=== PATIENT | male | born 1975 | race Caucasian/White ===

== ENCOUNTER 2016-08-11 17:59 | Observation (INO) | payer OTHER ==
[~2016-08-11] VITALS: Ht 188 cm; Wt 96.4 kg
[~2016-08-11 17:59] MED LIST: NAPR500 PO; PRIL10CA PO
[2016-08-11 18:10] VITALS: BP 120/82; PULSE 105; RESP 16; TEMP 100.1; O2SAT 98
[2016-08-11] MEDS ORDERED: SODIUM CHLOR 0.9% 1000 ML INJ 1,000 ML IV SCH (18:18)
[2016-08-11] MEDS ORDERED: PRIL20CA9 PO (18:22)
--- NOTE | 2016-08-11 18:22 | PD ---
HPI Chief Complaint: Abdominal Pain Time Seen by Provider: 18:14 Travel History International Travel<30 days: No Contact w/Intl Traveler<30days: No Traveled to known affect area: No History of Present Illness HPI 41-year-old male here for evaluation of abdominal pain. The patient reports that around 2:00 AM the patient was awaken by lower abdominal pain. Pain described as cramping which is worse with movement and palpation, currently 5 out of 10. The patient has felt nauseous but has not vomited. No diarrhea. He has had subjective fevers and chills. No urinary symptoms. No history of abdominal surgeries. PFSH Past Medical History Gastrointestinal Disorders: Yes (ACID REFLUX) Past Surgical History Oral Surgery: Yes Social History Alcohol Use: Yes (OCC) Tobacco Use: No Substance Use: No Allergies-Medications (Allergen,Severity, Reaction): Coded Allergies: Sulfa (Verified Allergy, Unknown, 08/11/16) Penicillin (Verified Adverse Reaction, Unknown, 08/11/16) Reported Meds & Prescriptions Reported Meds & Active Scripts Active Reported Prilosec (Omeprazole) 20 Mg Cap 20 Mg PO DAILY Review of Systems Except as stated in HPI: all other systems reviewed are Neg Physical Exam Narrative GENERAL: Well-developed, well-nourished, comfortable, no acute distress. SKIN: Focused skin assessment warm/dry. No rash. HEAD: Atraumatic. Normocephalic. EYES: Pupils equal and round. No scleral icterus. No injection or drainage. ENT: Mucous membranes pink and moist. NECK: Trachea midline. No JVD. CARDIOVASCULAR: Regular rate and rhythm. RESPIRATORY: No accessory muscle use. Clear to auscultation. Breath sounds equal bilaterally. GASTROINTESTINAL: Abdomen soft, nondistended. Moderate periumbilical and right lower quadrant tenderness. Mild left lower quadrant tenderness. No peritoneal signs. Rest of abdomen is soft and nontender. No hernias. Normal bowel sounds. MUSCULOSKELETAL: No obvious deformities. No clubbing. No cyanosis. No edema. NEUROLOGICAL: Awake and alert. No obvious cranial nerve deficits. Motor grossly within normal limits. Normal speech. PSYCHIATRIC: Appropriate mood and affect; insight and judgment normal. Data Data Last Documented VS Vital Signs Date Time Temp Pulse Resp B/P Pulse Ox O2 Delivery O2 Flow Rate FiO2 08/11/16 20:20 89 17 116/68 100 Room Air 08/11/16 18:10 100.1 Orders Complete Blood Count With Diff (08/11/16 18:18) Comprehensive Metabolic Panel (08/11/16 18:18) Lipase (08/11/16 18:18) Prothrombin Time / Inr (Pt) (08/11/16 18:18) Act Partial Throm Time (Ptt) (08/11/16 18:18) Urinalysis - C+S If Indicated (08/11/16 18:18) Ct Abd/Pel W Iv Contrast(Rout) (08/11/16 18:18) Iv Access Insert/Monitor (08/11/16 18:18) Ecg Monitoring (08/11/16 18:18) Oximetry (08/11/16 18:18) Sodium Chlor 0.9% 1000 Ml Inj (Ns 1000 M (08/11/16 18:18) Sodium Chloride 0.9% Flush (Ns Flush) (08/11/16 18:30) Sodium Chlor 0.9% 1000 Ml Inj (Ns 1000 M (08/11/16 18:30) Oral Contrast - Adult (08/11/16 18:27) Diatrizoate Liq ( Gastroview Liq) (08/11/16 18:39) Iohexol 350 Inj (Omnipaque 350 Inj) (08/11/16 20:11) Labs Laboratory Tests Test 08/11/16 08/11/16 18:15 18:18 White Blood Count 13.2 TH/MM3 Red Blood Count 4.89 MIL/MM3 Hemoglobin 15.4 GM/DL Hematocrit 45.6 % Mean Corpuscular Volume 93.3 FL Mean Corpuscular Hemoglobin 31.5 PG Mean Corpuscular Hemoglobin 33.8 % Concent Red Cell Distribution Width 13.8 % Platelet Count 247 TH/MM3 Mean Platelet Volume 9.2 FL Neutrophils (%) (Auto) 69.9 % Lymphocytes (%) (Auto) 19.2 % Monocytes (%) (Auto) 9.9 % Eosinophils (%) (Auto) 0.7 % Basophils (%) (Auto) 0.3 % Neutrophils # (Auto) 9.3 TH/MM3 Lymphocytes # (Auto) 2.5 TH/MM3 Monocytes # (Auto) 1.3 TH/MM3 Eosinophils # (Auto) 0.1 TH/MM3 Basophils # (Auto) 0.0 TH/MM3 CBC Comment DIFF FINAL Differential Comment Prothrombin Time 10.7 SEC Prothromb Time International 1.0 RATIO Ratio Activated Partial 27.8 SEC Thromboplast Time Sodium Level 138 MEQ/L Potassium Level 3.3 MEQ/L Chloride Level 103 MEQ/L Carbon Dioxide Level 26.4 MEQ/L Anion Gap 9 MEQ/L Blood Urea Nitrogen 8 MG/DL Creatinine 0.86 MG/DL Estimat Glomerular Filtration 98 ML/MIN Rate Random Glucose 92 MG/DL Calcium Level 8.9 MG/DL Total Bilirubin 0.9 MG/DL Aspartate Amino Transf 11 U/L (AST/SGOT) Alanine Aminotransferase 28 U/L (ALT/SGPT) Alkaline Phosphatase 61 U/L Total Protein 7.3 GM/DL Albumin 3.7 GM/DL Lipase 120 U/L Urine Color YELLOW Urine Turbidity CLEAR Urine pH 6.5 Urine Specific [place] 1.016 Urine Protein NEG mg/dL Urine Glucose (UA) NEG mg/dL Urine Ketones NEG mg/dL Urine Occult Blood SMALL Urine Nitrite NEG Urine Bilirubin NEG Urine Leukocyte Esterase NEG Urine RBC 0-3 /hpf Urine Squamous Epithelial 0-5 /hpf Cells Microscopic Urinalysis Comment CULT NOT INDICATED MDM Medical Decision Making Medical Screen Exam Complete: Yes Emergency Medical Condition: Yes Differential Diagnosis Appendicitis, colitis, diverticulitis, cystitis, UTI Narrative Course Initial vital signs show heart rate 105, blood pressure 120/82, pulse ox 98% on room air, oral temp of 100.1F. CBC shows WBC 13.2, hemoglobin 15.4, hematocrit 45.6, platelets 247. CMP is remarkable for potassium 3.3, otherwise unremarkable. Lipase is 120. UA shows small occult blood, not suggestive of UTI. CT abdomen pelvis: CONCLUSION: Mild prominent tubular structure which appears to arise from the cecum and measures up to 1 cm in diameter consistent with an appendix. There is questionable mild wall enhancement and questionable minimal inflammatory change. This is of concerning for possible early appendicitis. 8:35 PM: Case discussed with on-call general surgeon Dr. Lowery who is here in the emergency department and will evaluate the patient. Patient will be started on Cipro and Flagyl and will be admitted to Dr. Lowery for appendectomy in the morning. Diagnosis Primary Impression: Acute appendicitis Qualified Code: K35.80 - Acute appendicitis, unspecified acute appendicitis type Admitting Information Admitting Physician Requests: Observation Curry Monroy MD August 11, 2016 18:22
[2016-08-11] MEDS ORDERED: SODIUM CHLORIDE 0.9% FLUSH 10 ML FLUSH IV FLUSH PRN ×2 (18:30→21:15)
[2016-08-11] MEDS ORDERED: SODIUM CHLOR 0.9% 1000 ML INJ 1,000 ML IV ONE (18:30)
[2016-08-11 18:35] VITALS: O2SAT 97
[2016-08-11] MEDS ORDERED: DIATRIZOATE MEGLUM/DIATRIZOATE SOD 9 ML CUP ONE (18:39)
[2016-08-11 18:48] LABS: AUTOMATED NEUTROPHIL # 9.3 TH/MM3 (1.8-7.7); BASOPHIL % 0.3 % (0.0-2.0); EOSINOPHIL # 0.1 TH/MM3 (0-0.4); EOSINOPHIL % 0.7 % (0.0-4.0); HEMATOCRIT 45.6 % (39.0-51.0); HEMO FLAGS DIFF FINAL; LYMPH % 19.2 % (9.0-44.0); LYMPHOCYTE # 2.5 TH/MM3 (1.0-4.8); MEAN CELL VOLUME 93.3 FL (80.0-100.0); MEAN CORPUSCULAR HEMOGLOBIN 31.5 PG (27.0-34.0); MEAN CORPUSCULAR HGB CONC 33.8 % (32.0-36.0); MONO % 9.9 % (0.0-8.0); NEUT % 69.9 % (16.0-70.0); PLATELET COUNT 247 TH/MM3 (150-450); RED BLOOD COUNT 4.89 MIL/MM3 (4.50-5.90); RED CELL DISTRIBUTION WIDTH 13.8 % (11.6-17.2); WHITE BLOOD COUNT 13.2 TH/MM3 (4.0-11.0)
[2016-08-11 18:54] LABS: CHLORIDE 103 MEQ/L (98-107); POTASSIUM 3.3 MEQ/L (3.5-5.1); SODIUM (NA) 138 MEQ/L (136-145)
[2016-08-11 18:55] LABS: BLOOD, URINE SMALL (NEG); GLUCOSE,URINE NEG (NEG); KETONE, URINE NEG (NEG); NITRITE,URINE NEG (NEG); PH, URINE 6.5 (5.0-8.5)
[2016-08-11 18:58] LABS: APTT (PATIENT) 27.8 SEC (24.3-30.1); PROTHROMBIN TIME - PATIENT 10.7 SEC (9.8-11.6)
[2016-08-11 19:00] LABS: ANION GAP 9 MEQ/L (5-15); BICARBONATE 26.4 MEQ/L (21.0-32.0)
[2016-08-11 19:01] LABS: BLOOD UREA NITROGEN 8 MG/DL (7-18)
[2016-08-11 19:03] LABS: ALT (GPT) 28 U/L (12-78); AST (GOT) 11 U/L (15-37)
[2016-08-11 19:04] LABS: GLOMERULAR FILTRATION RATE 98 ML/MIN (>89)
[2016-08-11 19:05] VITALS: BP 150/68; PULSE 102; RESP 17; O2SAT 100
[2016-08-11 19:05] LABS: TOTAL BILIRUBIN ADULT 0.9 MG/DL (0.2-1.0)
[2016-08-11 19:06] LABS: ALKALINE PHOSPHATASE 61 U/L (45-117)
[2016-08-11 19:07] LABS: URINE COLOR YELLOW (YELLW/STRAW)
[2016-08-11 19:08] LABS: COMMENT (UR) CULT NOT INDICATED; CULTURE IF INDICATED CULT NOT INDICATED; RBC, URINE 0-3 /hpf (0-3); SQUAMOUS EPITHELIAL CELL URINE 0-5 /hpf (0-5)
[2016-08-11] MEDS ORDERED: IOHEXOL 350 MG/ML 10 ML VIAL (for RAD DIAG) IV ONE (20:11)
[2016-08-11 20:20] VITALS: BP 116/68; PULSE 89; RESP 17; O2SAT 100
--- NOTE | 2016-08-11 20:21 | RADHPO ---
EXAM DATE/TIME: 08/11/2016 19:54 [facility] COMPARISON: No previous studies available for comparison. INDICATIONS : Right lower quadrant pain. IV CONTRAST: 100 cc Omnipaque 350 (iohexol) IV ORAL CONTRAST: Prescribed oral contrast ingested. RADIATION DOSE: 14.98 CTDIvol (mGy) MEDICAL HISTORY : None SURGICAL HISTORY : None. ENCOUNTER: Initial ACUITY: 2 days PAIN SCALE: 5/10 LOCATION: Right lower quadrant TECHNIQUE: Volumetric scanning of the abdomen and pelvis was performed. Using automated exposure control and ad justment of the mA and/or kV according to patient size, radiation dose was kept as low as reasonably achievable to obtain optimal diagnostic quality images. FINDINGS: LOWER LUNGS: The visualized lower lungs are clear. LIVER: Homogeneous density without lesion. There is no dilation of the biliary tree. No calcified gallston es. SPLEEN: Normal size without lesion. PANCREAS: Within normal limits. KIDNEYS: Normal in size and shape. There is no L1 mass, stone or hydronephrosis. A simple cyst is noted in th e left kidney. ADRENAL GLANDS: Within normal limits. VASCULAR: There is no aortic aneurysm. BOWEL/MESENTERY: There is a mildly prominent tubular structure which appears to arise from the cecum and measures up t o 1 cm in diameter. There is questionable mild wall enhancement and questionable minimal inflammatory change. with no evidence of appendicolith. The bowel gas pattern is otherwise unremarkable. There is no evidence of obstruction or free air. ABDOMINAL WALL: Within normal limits. RETROPERITONEUM: There is no lymphadenopathy. BLADDER: No wall thickening or mass. REPRODUCTIVE: Within normal limits. INGUINAL: There is no lymphadenopathy or hernia. MUSCULOSKELETAL: Within normal limits for patient age. CONCLUSION: Mild prominent tubular structure which appears to arise from the cecum and measures up to 1 cm in deyanira meter consistent with an appendix. There is questionable mild wall enhancement and questionable minim al inflammatory change. This is of concerning for possible early appendicitis. Calvin Sigala MD on August 11, 2016 at 20:15 Board Certified Radiologist. This report was verified electronically.
[2016-08-11] MEDS ORDERED: CIPROFLOXACIN 400 MG PREMIX 200 ML IV ONE (21:00)
[2016-08-11] MEDS ORDERED: metroNIDAZOLE 500 MG INJ 100 ML IV ONE (21:00)
[2016-08-11] MEDS: SODIUM CHLOR 0.9% 1000 ML INJ 1,000 ML IV SCH (21:07)
[2016-08-11 21:15] VITALS: BP 127/55; PULSE 81; RESP 18; TEMP 99.5; O2SAT 98
[2016-08-11] MEDS ORDERED: MORPHINE SULFATE 4 MG/ML INJ IV PRN (21:15)
[2016-08-11] MEDS ORDERED: oxyCODONE/ACETAMINOPHEN 5 MG/325 MG TAB PO PRN (21:15)
[2016-08-11] MEDS: SODIUM CHLORIDE 0.9% FLUSH 10 ML FLUSH IV FLUSH SCH (21:15)
--- NOTE | 2016-08-11 21:39 | MH ---
cc: BUTCH ROSE DATE OF ADMISSION 08/11/2016 CHIEF COMPLAINT Right lower quadrant pain. HISTORY OF PRESENT ILLNESS The patient is a 41-year-old male who had recently developed some periumbilical abdominal pain that relocated to his right lower quadrant. This happened approximately 24 hours ago and it has increased in severity and is constant pain without radiation. The patient presented to the emergency department at [facility] and underwent evaluations, was found to have leukocytosis, as well as CT scan showing appendix in the upper limits of normal, concerning for possible early appendicitis. General surgery consulted for evaluation. The patient states that he was in his normal state of health although he has had some recent diarrhea. The patient did otherwise denies any nausea, vomiting, constipation, hematochezia, fevers, chills, night sweats or any other complaints. He denies any previous surgeries. REVIEW OF SYSTEMS A 12 point review of systems done with the patient is negative except for pertinent positives mentioned above in the history of present illness. PAST MEDICAL HISTORY None. PAST SURGICAL HISTORY None. ALLERGIES PENICILLIN. MEDICATIONS None. SOCIAL HISTORY The patient denies tobacco, alcohol or illicit drug use. use. FAMILY HISTORY No history of inflammatory bowel disease. No history of GI malignancy. PHYSICAL EXAMINATION VITAL SIGNS: Heart rate 105, otherwise within normal limits, afebrile. GENERAL: The patient is a well-developed, well-nourished male in no acute distress. Does not appear acute or chronically ill. HEAD: Normocephalic, atraumatic. Pupils round and reactive to light and accommodation. Sclerae anicteric. Mucous membranes are moist. NECK: Supple. No JVD. LUNGS: Clear to auscultation bilaterally. Nonlabored breathing pattern. CARDIOVASCULAR: Regular rate and rhythm. ABDOMEN: Soft. Tender to palpation in the right lower quadrant without focal peritonitis or rebound tenderness. No surgical scars. Normal bowel sounds. No hernias. BACK: No CVA tenderness. EXTREMITIES: No clubbing, cyanosis or edema. NEUROLOGIC: The patient is awake, alert and oriented x3 moving all extremities equally. Nonfocal peripheral exam. ASSESSMENT/PLAN The patient is a 41-year-old male with 24 hours of right lower quadrant pain. The patient clinically likely has early acute appendicitis. The patient should undergo laparoscopic appendectomy urgently which is my recommendation. Discussed risks, benefits, alternatives to laparoscopic appendectomy. I did discuss transfer to the main hospital versus performing appendectomy in a.m. at [facility] and he agrees to have surgery here tomorrow. All questions answered to his satisfaction. We will admit the patient and make the patient n.p.o. after midnight. Place him on IV antibiotics and appropriate analgesics. We will perform appendectomy the first available operating room time tomorrow morning. MD BRISEIDA Leiva/KK /9:05 PM /9:25 PM JUNI
[2016-08-11 22:27] VITALS: BP 120/77; PULSE 83; RESP 20; TEMP 98.1; O2SAT 95
[2016-08-11] MEDS: oxyCODONE/ACETAMINOPHEN 10 MG/325 MG TAB PO PRN (23:08)
[2016-08-12] MEDS: metroNIDAZOLE 500 MG INJ 100 ML IV SCH ×2 (03:20→08:27)
[2016-08-12] MEDS: SODIUM CHLOR 0.9% 1000 ML INJ 1,000 ML IV SCH ×2 (05:04→13:07)
[2016-08-12] MEDS ORDERED: BUPIVACAINE/EPINEPHRINE 0.25% PF 30 ML VIAL ONE (07:09)
[2016-08-12] MEDS: oxyCODONE/ACETAMINOPHEN 10 MG/325 MG TAB PO PRN ×2 (07:57→13:39)
[2016-08-12 08:00] VITALS: BP 120/77; PULSE 77; RESP 18; TEMP 97.7; O2SAT 96
[2016-08-12] MEDS: SODIUM CHLORIDE 0.9% FLUSH 10 ML FLUSH IV FLUSH SCH (08:27)
[2016-08-12 08:47] VITALS: BP 110/68; PULSE 78; RESP 16; TEMP 98.8; O2SAT 96
[2016-08-12] MEDS ORDERED: PANTOPRAZOLE SODIUM 40 MG VIAL IV SCH (09:00)
[2016-08-12] MEDS ORDERED: MIDAZOLAM HCL 2 MG/2 ML VIAL ONE ×2 (09:23→10:04)
[2016-08-12] MEDS ORDERED: fentaNYL CITRATE 250 MCG/5 ML AMP ONE (09:23)
[2016-08-12] MEDS ORDERED: CIPROFLOXACIN 400 MG PREMIX 200 ML IV SCH (10:00)
[2016-08-12] MEDS ORDERED: FAMOTIDINE 20 MG/2 ML VIAL ONE (10:03)
[2016-08-12 11:27] VITALS: PULSE 75
--- NOTE | 2016-08-12 11:36 | HHI.PR ---
Immediate Post Op Note Procedure Date: August 12, 2016 Pre Op Diagnosis: (1) Acute appendicitis Post Op Diagnosis: (1) Acute appendicitis Surgeon: Alvaro Lowery Service Station Console Operator(s): none Procedure: laparoscopic appendectomy Findings: uncomplicated appendicitis Complications: none Specimen(s) removed: appy Estimated blood loss: 10ml Anesthesia: General, Local Drains: None IVF Patient to: PACU Patient Condition: Good Alvaro Lowery MD August 12, 2016 11:36
[2016-08-12] MEDS ORDERED: MEPERIDINE HCL 25 MG/ML VIAL ONE (11:53)
[2016-08-12] MEDS ORDERED: DO NOT ADM ANY ANTICOAGULANT DRUGS PRN (12:00)
[2016-08-12] MEDS ORDERED: PROPOFOL 200 MG/20 ML AMP IV ONE (12:00)
[2016-08-12] MEDS ORDERED: ONDANSETRON HCL 4 MG/2 ML VIAL IV PUSH ONE (12:00)
[2016-08-12] MEDS ORDERED: PHENYLEPH/NS 1000 MCG/10 ML SYR IV ONE (12:00)
[2016-08-12] MEDS ORDERED: PROPOFOL 500 MG/50 ML BTL IV ONE (12:00)
[2016-08-12] MEDS ORDERED: NEOSTIGMINE 3 MG/3 ML SYR IV ONE (12:00)
[2016-08-12 12:15] VITALS: BP 134/71; PULSE 90; TEMP 98; O2SAT 95
--- NOTE | 2016-08-12 12:15 | MP ---
cc: BUTCH ROSE DATE OF SURGERY 08/12/2016 PREOPERATIVE DIAGNOSIS Acute appendicitis POSTOPERATIVE DIAGNOSIS Acute appendicitis PROCEDURE Laparoscopic appendectomy ATTENDING SURGEON Butch Rose MD FORESTRY PATROLMAN Staff ANESTHESIA General and local anesthetic COMPLICATIONS None BLOOD LOSS 10 cc FINDINGS Acute suppurative appendicitis without rupture and without complication. No other intra-abdominal pathology. INDICATIONS FOR PROCEDURE The patient is a 41-year-old male who developed 24 hours of increasing abdominal pain that relocalized to the right lower quadrant. CT scan at [facility] did show mildly dilated appendix concerning for possible early appendicitis. General surgery was consulted. After an explanation of the risks, benefits, and alternatives to laparoscopic appendectomy for treatment of acute appendicitis, the patient agreed to undergo the procedure. PROCEDURE After informed consent was obtained, the patient was taken to the operating room, placed in a supine position and placed under general endotracheal anesthesia. The patient's abdomen was shaved, prepped and draped in a sterile fashion. Time-out was performed. We then entered the abdomen through a periumbilical type incision with a Contreras type technique. We directly opened the fascia and placed a 10-mm balloon trocar into the abdomen under direct visualization. We insufflated the abdomen and placed two additional 5 mm trocars in the suprapubic, as well as in the left lower quadrant. We did use local anesthetic at all port sites. We then were able to easily identify the appendix which was suppurative and not ruptured. We made a window at the base of the appendix and used the white load on Ravia GI stapler to divide the base of the appendix and this splayed into the cecum. We then used to chacon loads to divide the mesentery of the appendix without difficulty. We had absolutely no bleeding and the staple line was intact, healthy and viable. We were then able to use a sponge to soak up a small amount of inflammatory fluid in the pelvis and right lower quadrant. At this point in time, again, the appendix was removed from the abdomen with EndoCatch bag through the periumbilical port. We did have no complications. No bleeding and was no other intraoral pathology. We removed ports under the visualization of the laparoscope and expressed pneumoperitoneum. We closed the Contreras entry site with four interrupted 0 Vicryl sutures. We closed the skin with 4-0 Monocryl and Dermabond. The patient was discontinued anesthesia and taken to the PACU in stable condition. The patient tolerated the procedure well. No apparent complications. All counts were correct. I was present and scrubbed for the entire procedure. MD BRISEIDA Leiva/MOON /11:44 AM /12:05 PM
[2016-08-12 14:33] VITALS: RESP 18
== END 2016-08-12 17:02 | disposition home or self-care (01) ==
LOC: PHED 17:59 → PHEDA 20:52 → PH3B 22:27
PROVIDERS: ADMIT Surgery; ATTEND Surgery
DX: K35.80 Unspecified acute appendicitis (principal); K21.9 Gastro-esophageal reflux disease without esophagitis; Z88.0 Allergy status to penicillin; Z88.2 Allergy status to sulfonamides
CPT/HCPCS: 44970; 74177; 80053; 81001; 83690; 85025; 85610; 85730; 88304; 96360; 96361; 99285; G0378; J0744; J2175; J2250; J2270; J2370; J2405; J2710; J3010; J7030; Q9963; Q9967